=== PATIENT | female | born 1980 | race Caucasian/White ===

== ENCOUNTER 2017-01-10 10:45 | Emergency (ER) | payer SELFPAY ==
--- NOTE | 2017-01-10 11:20 | ER Document Report ---
ED Medical Screen (RME) - General Stated Complaint: FEVER,CONGESTION,SORE THROAT,COUGH Notes: Patient states she has been sick for the last month, with congestion and sore throat. Did have a fever, but does not now. Patient states she is coughing up yellowish green phlegm. Patient is a smoker. Patient states she does have a history of bronchitis. I have greeted and performed a rapid initial assessment of this patient. A comprehensive ED assessment and evaluation of the patient, analysis of test results and completion of the medical decision making process will be conducted by additional ED providers. TRAVEL OUTSIDE OF THE [place] IN LAST 30 DAYS: No - Related Data Allergies/Adverse Reactions: amoxicillin [Amoxicillin] Allergy (Verified 01/10/17 11:18) Penicillins Allergy (Verified 01/10/17 11:18) Past Medical History Neurological Medical History: Reports: Hx Seizures - reports hx but denies medicated Psychiatric Medical History: Reports: Hx Anxiety, Hx Depression Past Surgical History: Reports: Hx Tonsillectomy, Hx Tubal Ligation - Immunizations Immunizations up to date: Yes Hx Diphtheria, Pertussis, Tetanus Vaccination: Yes Physical Exam - Vital signs Vitals: Temp Pulse Resp BP Pulse Ox 98.2 F 68 16 135/83 H 97 01/10/17 11:14 01/10/17 11:14 01/10/17 11:14 01/10/17 11:14 01/10/17 11:14 - Respiratory Respiratory status: No respiratory distress - Rhonchi noted right lower lobe. No wheezing. Course - Vital Signs Vital signs: Temp Pulse Resp BP Pulse Ox 98.2 F 68 16 135/83 H 97 01/10/17 11:14 01/10/17 11:14 01/10/17 11:14 01/10/17 11:14 01/10/17 11:14
[2017-01-10] MEDS ORDERED: ALBUTEROL SULFATE 0.083% NEB 2.5 MG/3 ML AMPUL NEB ONE (12:52)
--- NOTE | 2017-01-10 13:22 | ER Document Report ---
HPI - HPI Patient complains to provider of: sick for 6 weeks Onset: Other - Friday Pain Level: 4 Context: 36-year-old smoker with 3 respiratory illnesses over the past 6 weeks started getting sick with a cough and congestion this Friday. No fever. No Travel outside the [place]. No Diabetes or HIV. Associated Symptoms: None Exacerbated by: Denies Relieved by: Denies Similar symptoms previously: Yes Recently seen / treated by doctor: No - ROS ROS below otherwise negative: Yes Systems Reviewed and Negative: Yes All other systems reviewed and negative - REPRODUCTIVE Reproductive: DENIES: : - DERM Skin Color: Normal Past Medical History - General Information source: Patient - Social History Smoking Status: Current Every Day Smoker Chew tobacco use (# tins/day): No Frequency of alcohol use: None Drug Abuse: None Lives with: Family Family History: Reviewed & Not Pertinent Neurological Medical History: Reports: Hx Seizures - reports hx but denies medicated Renal/ Medical History: Denies: Hx Peritoneal Dialysis Psychiatric Medical History: Reports: Hx Anxiety, Hx Depression Past Surgical History: Reports: Hx Tonsillectomy, Hx Tubal Ligation - Immunizations Immunizations up to date: Yes Hx Diphtheria, Pertussis, Tetanus Vaccination: Yes Vertical Provider Document - CONSTITUTIONAL Agree With Documented VS: Yes Exam Limitations: No Limitations - INFECTION CONTROL TRAVEL OUTSIDE OF THE [place] IN LAST 30 DAYS: No - HEENT HEENT: Normocephalic, PERRLA, Pharyngeal Erythema. negative: Conjuctival Injection, Tympanic Membrane Red, Tympanic Membrane Bulging - NECK Neck: Supple. negative: Lymphadenopathy-Left, Lymphadenopathy-Right - RESPIRATORY Respiratory: Breath Sounds Normal, No Respiratory Distress O2 Sat by Pulse Oximetry: 97 - CARDIOVASCULAR Cardiovascular: Regular Rate, Regular Rhythm - GI/ABDOMEN Gastrointestinal: Abdomen Soft, Abdomen Non-Tender, No Organomegaly - MUSCULOSKELETAL/EXTREMETIES Musculoskeletal/Extremeties: RAMY LEMON - NEURO Level of Consciousness: Awake, Alert - DERM Integumentary: Warm, Dry, No Rash Course - Re-evaluation Re-evalutation: 01/10/17 13:22 X-ray is negative - Vital Signs Vital signs: Temp Pulse Resp BP Pulse Ox 98.2 F 68 16 135/83 H 97 01/10/17 11:14 01/10/17 11:14 01/10/17 11:14 01/10/17 11:14 01/10/17 11:14 Discharge - Discharge Clinical Impression: Bronchitis Condition: Good Disposition: HOME, SELF-CARE Instructions: Bronchitis ([facility]), Upper Respiratory Illness ([facility]), Inhaled Bronchodilators ([facility]) Additional Instructions: plenty of fluids to er if worse stop smoking over the counter Robitussin with codeine,you'll have to sign for a but that will help with the cough Please complete the patient satisfaction survey if you get one, and return it.. If you do not receive a survey, then you can go to the [facility] website, [email or web address] and place your comments about your very good care. Thank you very much. It was a pleasure being your medical provider today. Prescriptions: Albuterol Sulfate [Proair HFA Inhalation Aerosol 8.5 gm MDI] 2 puff IH Q3HP PRN #1 [email or web address] PRN Reason: Azithromycin [Zithromax] 250 mg PO DAILY #6 tablet Referrals: STACY FERRERA MD [Primary Care Provider] - Follow up as needed
[2017-01-10 14:11] VITALS: BP 142/78
== END 2017-01-10 14:10 | disposition home or self-care (01) ==
LOC: ER 10:45
DX: J40 Bronchitis, not specified as acute or chronic (principal); R05 Cough; R09.81 Nasal congestion; F17.200 Nicotine dependence, unspecified, uncomplicated
CPT/HCPCS: 71020; 94640; 99283